=== PATIENT | male | born 1980 | race Two or more races ===

== ENCOUNTER 2019-02-07 17:05 | Emergency (ER) | payer SELFPAY ==
[~2019-02-07] VITALS: Ht 165.1 cm; Wt 66.0 kg
[2019-02-07 17:12] VITALS: BP 110/66
== END 2019-02-07 20:53 | disposition home or self-care (01) ==
LOC: ER 20:22
DX: S63.501A Unspecified sprain of right wrist, initial encounter (principal); Y93.89 Activity, other specified; Y92.9 Unspecified place or not applicable
CPT/HCPCS: 73090; 73110; 99283